=== PATIENT | female | born 1990 | race African-American/Black ===

== ENCOUNTER 2022-09-22 20:41 | Emergency (ER) | payer SELFPAY ==
[~2022-09-22] VITALS: Ht 165.1 cm; Wt 144.7 kg
[2022-09-22] MEDS ORDERED: KETOROLAC TROMETHAMINE 60 MG/2 ML VIAL IM ONE (21:00)
[2022-09-22] MEDS ORDERED: GABAPENTIN400 MG PO (21:02)
[2022-09-22] MEDS ORDERED: AUGMENTIN 500-1 EACH PO (21:02)
[2022-09-22 21:17] VITALS: BP 188/104
[2022-09-22] MEDS ORDERED: KETOROLAC TROMETHAMINE 30 MG/ML VIAL ONE (21:18)
== END 2022-09-22 21:17 | disposition home or self-care (01) ==
LOC: FSED 20:56
DX: K02.9 Dental caries, unspecified (principal); F17.200 Nicotine dependence, unspecified, uncomplicated
CPT/HCPCS: 96372; 99282; J1885